=== PATIENT | male | born 1980 | race Caucasian/White ===

== ENCOUNTER 2024-05-27 07:06 | Emergency (ER) | payer SELFPAY ==
[~2024-05-27] VITALS: Ht 177.8 cm; Wt 117.9 kg
[2024-05-27] MEDS ORDERED: OMEP20ER PO (08:35)
[2024-05-27] MEDS ORDERED: HYDCHL12.5 PO (08:35)
[2024-05-27] MEDS ORDERED: Aspir 8181 MG PO (08:35)
[2024-05-27 09:16] LABS: BASOPHILS ABSOLUTE AUTO 0.08 K/mm3 (0.00-0.23); BASOPHILS PERCENT AUTO 1 % (0-2); EOSINOPHILS ABSOLUTE AUTO 0.01 K/mm3 (0.00-0.68); EOSINOPHILS PERCENT AUTO 0 % (0-6); Hematocrit 41.1 % (37.0-53.0); IMMATURE GRAN ABSOLUTE AUTO 0.03 K/mm3 (0.00-0.10); IMMATURE GRAN PERCENT AUTO 0 % (0-1); LYMPHOCYTES ABSOLUTE AUTO 1.49 K/mm3 (0.84-5.20); LYMPHOCYTES PERCENT AUTO 20 % (21-46); MONOCYTES ABSOLUTE AUTO 0.53 K/mm3 (0.16-1.47); MONOCYTES PERCENT AUTO 7 % (4-13); Mean Corpuscular HGB Conc 34.1 g/dL (31.5-36.5); Mean Corpuscular Volume 79 fL (80-100); Mean Platelet Volume 9.4 fL (9.1-12.4); NEUTROPHILS ABSOLUTE AUTO 5.47 K/mm3 (1.96-9.15); NEUTROPHILS PERCENT AUTO 72 % (41-73); Platelet Count 303 K/mm3 (150-400); RDW Coefficient Variation 13.8 % (11.7-14.2); RDW Standard Deviation 39.6 fL (35.1-46.3); Red Blood Cell Count 5.18 M/mm3 (4.30-5.90); White Blood Cell Count 7.61 K/mm3 (4.00-11.30)
[2024-05-27 09:27] LABS: Magnesium, Blood 1.6 mg/dL (1.6-2.4)
[2024-05-27 09:28] LABS: Albumin, Blood 3.8 g/dL (3.4-5.0); Albumin/Globulin Ratio 0.9 (0.8-1.8); Bilirubin, Total 0.5 mg/dL (0.1-1.0); Bun/Creatinine Ratio 13.7 (12.0-20.0); Calcium, Blood 8.9 mg/dL (8.5-10.1); Creatinine, Blood 0.8 mg/dL (0.60-1.20); Globulin, Blood 4.4 g/dL (2.2-4.0); Potassium, Blood 3.4 mmol/L (3.5-5.5); Total Protein, Blood 8.2 g/dL (6.4-8.2)
[2024-05-27 09:58] LABS: Influenza A, PCR NEGATIVE (NEGATIVE); Influenza B, PCR NEGATIVE (NEGATIVE); Resp Syncytial Virus, PCR NEGATIVE (NEGATIVE); SARS-Cov-2 (COVID-19) PCR, MMC NEGATIVE (NEGATIVE)
[2024-05-27] MEDS ORDERED: CloNIDine 0.1 MG Tab PO ONE (10:15)
[2024-05-27 10:26] LABS: Base Excess Venous 0.7 mmol/L; Bicarbonate Venous 25.6 mmol/L (24.0-30.0); PCO2 Venous 32.7 mmHg (38-42); pH Blood Venous 7.48 (7.34-7.37)
[2024-05-27] MEDS ORDERED: Metoprolol Tartrate 1 MG/ML 5 ML VIAL IV ONE (11:30)
[2024-05-27 12:07] LABS: U Amphetamine Screen Not Detected; U Barbituate Screen Not Detected; U Benzodiazapine Screen Not Detected; U Buprenorphine Screen Not Detected; U Cannabinoids Screen Not Detected; U Cocaine Screen Not Detected; U Methadone Screen Not Detected; U Methamphetamine Screen Not Detected; U Opiates Screen Not Detected; U Oxycodone Screen Not Detected; U Phencyclidine Screen Not Detected
[2024-05-27] MEDS ORDERED: LOSARTAN-HCTZ1 EAC3 PO (12:20)
== END 2024-05-27 12:28 | disposition home or self-care (01) ==
LOC: ER 07:06
PROVIDERS: Physician Assistant
DX: F10.90 Alcohol use, unspecified, uncomplicated (principal); I10 Essential (primary) hypertension; Z79.82 Long term (current) use of aspirin; Z79.899 Other long term (current) drug therapy
CPT/HCPCS: 0241U; 80053; 80320; 82803; 83735; 84100; 85025; 93005; 93010; 96374; 99284-25; A9270